=== PATIENT | male | born 1960 | race Caucasian/White ===

== ENCOUNTER 2024-09-26 08:29 | Outpatient (CLI) | payer OTHER, SELFPAY | END 2024-09-26 08:30 | disposition home or self-care (01) | PROVIDERS: PCP Nurse Practitioner Family; Visit Provider Nurse Practitioner Family | DX: R39.198 Other difficulties with micturition (principal); E78.5 Hyperlipidemia, unspecified; I25.10 Atherosclerotic heart disease of native coronary artery without angina pectoris; Z12.5 Encounter for screening for malignant neoplasm of prostate; Z13.0 Encounter for screening for diseases of the blood and blood-forming organs and certain disorders involving the immune mechanism | CPT/HCPCS: 80053; 80061; 85025; G0103 ==

== ENCOUNTER 2024-12-19 09:32 | Outpatient (CLI) | payer OTHER, SELFPAY | END 2024-12-19 09:33 | disposition home or self-care (01) | PROVIDERS: PCP Nurse Practitioner Family; Visit Provider Nurse Practitioner Family | DX: E78.5 Hyperlipidemia, unspecified (principal) | CPT/HCPCS: 85025 ==

== ENCOUNTER 2025-05-29 09:05 | Outpatient (CLI) | payer OTHER, SELFPAY | END 2025-05-29 09:06 | disposition home or self-care (01) | PROVIDERS: PCP Nurse Practitioner Family; Visit Provider Nurse Practitioner Family | DX: Z01.818 Encounter for other preprocedural examination (principal) | CPT/HCPCS: 80053; 85025 ==